=== PATIENT | female | born 1980 | race Caucasian/White ===

== ENCOUNTER 2016-10-08 20:53 | Emergency (ER) | payer MEDICARE ==
--- NOTE | ~2016-10-08 | CT2 ---
[facility] A Service of [facility] RADIOLOGY TEXT RESULTS PATIENT: CHIVO LOPEZ LOCATION: SED : 76 UNIT #: [id number] AGE: [address]: Everardo Bartholomew MD SEX: F ORDER DR: [id number] [place] [id number] MR#: [id number] Acc #: [id number] NAME: CHIVO LOPEZ : 1980 SEX: F STUDY DATE/TIME: 10/08/2016 22:18 UNIT: SED ROOM: STUDY DESCRIPTION: CT Abd and Pelv W Cont Attending Physician: Everardo Bartholomew M.D. Ordering Physician: Everardo Bartholomew M.D. Primary Care Physician: Christa Mckinnon M.D. MEDICAL IMAGING REPORT This report is preliminary unless electronic signature is present. EXAM CT scan of the abdomen and pelvis with contrast, 10/08/2016. HISTORY Right upper quadrant abdominal pain for 1.5 weeks, worsening tonight. TECHNIQUE Spiral CT was performed through the abdomen and pelvis following intravenous contrast administration only as per clinician request. This CT exam was performed with one or more of the following radiation dose reduction techniques: automatic exposure control, adjustment of mA and/or kV according to patient size, and iterative reconstruction. FINDINGS Abdomen: Exam is limited by the lack of oral contrast. There is mild diffuse fatty infiltration of the liver. Spleen is not visualized. 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 Correlation with patient history is suggested. The pancreas, gallbladder and biliary tree, adrenal glands and kidneys are normal. Pelvis findings: There is a small periumbilical hernia containing only fat. The gut, mesenteric and dilip structures are normal. There is no free fluid in the abdomen or pelvis. The lung bases are normal. IMPRESSION 1. Fatty infiltration of the liver. 2. Surgical absence of the spleen. Dictated by... Javier Munoz M.D. [facility] A Service of [facility] RADIOLOGY TEXT RESULTS PATIENT: CHIVO LOPEZ LOCATION: SED : 76 UNIT #: [id number] AGE: [address]: Everardo Bartholomew MD SEX: F ORDER DR: THIS IS AN ELECTRONICALLY VERIFIED REPORT Javier Munoz M.D. at 10/09/2016 2:57 PM KRT/gz TD: 10/09/2016 09:01 JOB #: [id number] MEDICAL IMAGING REPORT
[~2016-10-08 20:53] MED LIST: (NONE)1 CA1 BU; ABILIFY PO; AMBIEN PO; AMBIEN10 MG PO; CHOLESTYRAMINE P4 GM PO; CLONAZEPAM0.5 MG PO; DEXILANT60 MG PO; EC-NAPROSYN500 MG PO; FLEXERIL10 MG PO; HYDROCODON-ACE1 EAC5 PO; IMITREX PO; KLONOPIN PO; KLONOPIN1 MG PO; LAMICTAL100 MG PO; LEXAPRO PO; LORTAB 7.5-5001 TAB PO; MELATONIN3 MG PO; NITROGLYCERIN OI1 GM EXT; OXYCODONE HCL15 MG PO; PEPCID AC20 M2 PO; PREDNISONE PO; PREMARIN PO; PREVACID PO; PRILOSEC PO; PRISTIQ100 MG PO; PROBIOTIC1 EACH PO; REGLAN5 MG PO; RELPAX40 MG PO; ROBAXIN PO; ROZEREM8 MG PO; STRATTERA PO; SUDAFED 12-HOU120 MG PO; TOPAMAX PO; TOPAMAX200 MG PO; TRAZODONE PO; VISTARIL PO; ZOFRAN ODT4 MG PO
[2016-10-08 21:11] LABS: BASOPHIL# 0.1 X10e3 (0-0.3); BASOPHIL% 0.9 % (0-2.5); EOSINOPHIL# 0.4 X10e3 (0-0.7); EOSINOPHIL% 2.3 % (0.0-7.0); HEMATOCRIT 41.1 % (35.0-45.0); HEMOGLOBIN 13.2 gm/dL (12.0-16.0); LYMPHOCYTE# 6.8 X10e3 (1.0-3.5); LYMPHOCYTE% 40.3 % (17.0-45.0); MEAN CELL VOLUME 91.6 FL (83-96); MEAN CORPUSCULAR HEMOGLOBIN 29.5 PG (28-34); MEAN CORPUSCULAR HGB CONC 32.2 g/dL (30-36); MEAN PLATELET VOLUME 8.8 FL (6.5-11.5); MONOCYTE# 1.4 X10e3 (0-1.0); MONOCYTE% 8.1 % (3.0-12.0); NEUTROPHIL# 8.2 X10e3 (1.5-7.1); NEUTROPHIL% 48.4 % (40-75); PLATELET COUNT 353 X10e3 (140-420); RED BLOOD COUNT 4.49 X10e (3.90-5.30); RED CELL DISTRIBUTION WIDTH 13.9 % (11.0-15.5)
[2016-10-08 21:13] LABS: DIFF IND NO
[2016-10-08 21:31] LABS: ALBUMIN SERUM 3.8 g/dL (3.5-5.0); ALKALINE PHOSPHATASE 67 U/L (32-92); ALT (SGPT) 16 U/L (10-40); AMYLASE 17 U/L (0-46); AST (SGOT) 14 U/L (10-42); BILIRUBIN,TOTAL 0.4 mg/dL (0.2-2.0); BLOOD UREA NITROGEN 11 mg/dL (9-23); CALCIUM SERUM 8.7 mg/dL (8.4-10.2); CARBON DIOXIDE 25 mmol/L (22-31); CHLORIDE 105 mmol/L (100-111); GLOM FILT RATE Estimated ABOVE60 mL/min (>60); GLUCOSE FASTING 96 mg/dL (70-110); LIPASE 22 U/L (22-51); POTASSIUM 3.3 mmol/L (3.5-5.1); PROTEIN TOTAL SERUM 6.6 g/dL (6.0-8.3); SODIUM 138 mmol/L (135-145)
[2016-10-08 21:34] LABS: BILIRUBIN, DIRECT <0.1 mg/dL (0.0-0.2); BILIRUBIN,INDIRECT 0.3 mg/dL (0.0-0.9)
== END 2016-10-08 23:02 | disposition home or self-care (01) ==
LOC: SED 20:53
PROVIDERS: Emergency Medicine
DX: R10.11 Right upper quadrant pain (principal); Z88.5 Allergy status to narcotic agent; Z91.040 Latex allergy status; Z79.899 Other long term (current) drug therapy; Z87.891 Personal history of nicotine dependence
CPT/HCPCS: 36415; 74177; 80048; 80076; 82150; 83690; 85025; 96374; 96375; 99284; C9113; J1170; J2405; Q9967